=== PATIENT | female | born 1940 | race Caucasian/White ===

== ENCOUNTER 2017-05-05 21:05 | Observation (INO) | payer OTHER ==
--- NOTE | 2017-05-05 21:42 | PDOC ---
Attending Attestation - Resident Resident Name: JaswantIris cisneros - HPI HPI: 05/06/17 01:18 Pt presents to the ED complaining of chest "discomfort", accompanied with nausea and diaphoresis. Histor of DM and HTN. Never had cardiac work up, as per family.
[2017-05-05] MEDS ORDERED: ASPIRIN 325 MG TABLET PO ONE (21:48)
[2017-05-05 22:04] VITALS: BMI 25.6
[2017-05-05] MEDS ORDERED: ASPIRIN 81 MG CHEWABLE TABLETS ONE (22:13)
[2017-05-05] MEDS ORDERED: SODIUM CHLORIDE 0.9% 1000 ML INFUS.BAG IV ONE (22:16)
[2017-05-05 22:41] LABS: MCH 28.9 pg (25.7-33.7); MCHC 32.9 g/dl (32.0-36.0); MEAN CELL VOLUME 87.8 fl (80-96); MEAN PLT VOLUME 8.4 fl (7.5-11.1); PLATELET COUNT 192 K/MM3 (134-434); RDW 13.4 % (11.6-15.6); WHITE BLOOD COUNT 6.1 K/mm3 (4.0-10.0)
--- NOTE | 2017-05-05 22:53 | PDOC ---
History of Present Illness - General Stated Complaint: DIZZINESS Time Seen by Provider: 05/05/17 21:22 History Source: Patient, Family - History of Present Illness Initial Comments: 05/05/17 22:48 CC: :Dizziness Patient is a 77 y.o. female who presents to our ED this evening via EMS with her daughter and son-in-law following an episode of "dizziness" with associated chest pain, diaphoresis and nausea. Patient states she was standing in her kitchen preparing dinner when she suddenly felt "dizzy" though she's unable to qualify as to whether she was spinning or the room was spinning. Patient also notes she had a momentary pressure-like sternal chest pain which resolved within minutes, however she was diaphoretic and vomited (yellowish, no visible blood) on one occasion. ROS was positive for headache and epigastric abdominal pain. Past History - Past Medical History Allergies/Adverse Reactions: Allergies Allergy/AdvReac Type Severity Reaction Status Date / Time No Known Allergies Allergy Verified 05/05/17 22:02 - Psycho/Social/Smoking Cessation Hx Suicidal Ideation: No Smoking History: Unknown if ever smoked Have you smoked in the past 12 months: No Information on smoking cessation initiated: No Hx Alcohol Use: No Drug/Substance Use Hx: No Review of Systems - Review of Systems Constitutional: Yes: Diaphoresis. No: Chills, Fever, Malaise HEENTM: No: Blurred Vision, Tinnitus, Hearing Loss, Throat Pain Respiratory: Yes: Cough. No: Orthopnea, Wheezing, Hemoptysis Cardiac (ROS): Yes: Chest Pain, Lightheadedness. No: Edema, Palpitations, Syncope ABD/GI: Yes: Symptoms Reported. No: Constipated, Diarrhea : No: Burning, Dysuria Neurological: Yes: Headache. No: Numbness, Seizure, Tingling, Tremors Psychiatric: No: Anxiety, Depression All Other Systems: Reviewed and Negative *Physical Exam - Vital Signs Last Vital Signs Temp Pulse Resp BP Pulse Ox 97.6 F 73 17 138/90 99 05/05/17 21:55 05/05/17 21:55 05/05/17 21:55 05/05/17 21:55 05/05/17 21:55 - Physical Exam General Appearance: Yes: Nourished, Appropriately Dressed HEENT: positive: EOMI, HUNTER Neck: positive: Trachea midline, Supple Respiratory/Chest: positive: Lungs Clear, Normal Breath Sounds Cardiovascular: positive: Regular Rhythm, Regular Rate, S1, S2 Gastrointestinal/Abdominal: positive: Normal Bowel Sounds, Soft Extremity: positive: Normal Capillary Refill, Normal Inspection Integumentary: positive: Normal Color, Dry, Warm Neurologic: positive: manager assisted living II-XII NML intact, Fully Oriented, Alert Deep Tendon Reflexes: Ankle (L): 3+, Ankle (R): 3+ ED Treatment Course - LABORATORY CBC & Chemistry Diagram: 05/05/17 22:00 05/05/17 22:00 - RADIOLOGY Radiology Studies Ordered: Category Date Time Status CHEST PA & LAT [RAD] Stat Radiology 05/05/17 21:40 Ordered - Medications Given in the ED: ED Medications Discontinued Medications Generic Name Dose Route Start Last Admin Trade Name Freq PRN Reason Stop Dose Admin Aspirin 325 mg 05/05/17 21:48 05/05/17 22:28 Asa - PO 05/05/17 21:49 325 mg ONCE ONE Administration Sodium Chloride 1,000 ml 05/05/17 22:16 05/05/17 22:28 Normal Saline - IV 05/05/17 22:17 1,000 ml ONCE ONE Administration Medical Decision Making - Medical Decision Making 05/06/17 01:23 Patient is a 77 y.o. female who presents for dizziness and an associated isolated episode of chest pain. Immediate differential diagnosis included ACS vs. GERD vs. dehydration. On PE, patient's VS were within normal limits. Patient exhibited normal cappilary refill and there was no apparent skin tenting , however as patient had c/o of diaphoresis and decreased PO intake, patient was given 1 L IVNS as well as prophylactic aspirin. As patient's Heart Score was 4 (2 points age + 1 point RF of HTN, DM + 1 moderately suspicious history) patient was admitted for further cardiac work-up. *DC/Admit/Observation/Transfer Diagnosis at time of Disposition: Chest pain - Discharge Dispostion Condition at time of disposition: Good Admit: Yes - Attestations Physician Attestion: 05/06/17 00:49 I, Dr. Iris Michaud, attest that this document has been prepared under my direction and personally reviewed by me in its entirety. I further attest, that it accurately reflects all work, treatment, procedures and medical decision -making performed by me.
[2017-05-05 23:09] LABS: ANION GAP 8 (8-16); CALCIUM 9.3 mg/dL (8.5-10.1); CO2 28 mmol/L (21-32); CREATININE 0.9 mg/dL (0.55-1.02); GLUCOSE,RANDOM 144 mg/dL (74-106)
[2017-05-05 23:26] LABS: TROPONIN I < 0.02 ng/ml (0.00-0.05)
--- NOTE | 2017-05-06 00:39 | PN ---
Teaching Attending Note Name of Resident: Maxwell Pak ATTENDING PHYSICIAN STATEMENT I saw and evaluated the patient. I reviewed the resident's note and discussed the case with the resident. I agree with the resident's findings and plan as documented. SUBJECTIVE:77 y/o F presented to ED with Dizziness, and CP which started at rest , with N+ and V+. PMH: HTn, HD, DM2 and hearing loss. OBJECTIVE: Examination WNL, and No JVD, M/G/R, no rales or peripheral edema noted. CBCD WBC 6.1 K/mm3 (4.0-10.0) 05/05/17 22:00 RBC 4.24 M/mm3 (3.60-5.2) 05/05/17 22:00 Hgb 12.2 GM/dL (10.7-15.3) 05/05/17 22:00 Hct 37.2 % (32.4-45.2) 05/05/17 22:00 MCV 87.8 fl (80-96) 05/05/17 22:00 MCHC 32.9 g/dl (32.0-36.0) 05/05/17 22:00 RDW 13.4 % (11.6-15.6) 05/05/17 22:00 Plt Count 192 K/MM3 (134-434) 05/05/17 22:00 MPV 8.4 fl (7.5-11.1) 05/05/17 22:00 CMP Sodium 138 mmol/L (136-145) 05/05/17 22:00 Potassium 4.0 mmol/L (3.5-5.1) 05/05/17 22:00 Chloride 102 mmol/L (98-107) 05/05/17 22:00 Carbon Dioxide 28 mmol/L (21-32) 05/05/17 22:00 Anion Gap 8 (8-16) 05/05/17 22:00 BUN 18 mg/dL (7-18) 05/05/17 22:00 Creatinine 0.9 mg/dL (0.55-1.02) 05/05/17 22:00 Random Glucose 144 mg/dL (74-106) H 05/05/17 22:00 Calcium 9.3 mg/dL (8.5-10.1) 05/05/17 22:00 CARDIAC ENZYMES Creatine Kinase 62 IU/L (26-192) 05/05/17 22:00 Troponin I < 0.02 ng/ml (0.00-0.05) 05/06/17 04:00 ASSESSMENT AND PLAN: Admitted for telemetry observation to r/o ACS trend troponins, aspirin, oxygen, pain medications prn, ECHO in AM. Case d/w residents and plans agreed on.
--- NOTE | 2017-05-06 01:03 | HP ---
CHIEF COMPLAINT: Dizziness, sweating, chest discomfort PCP: Austin Swenson MD HISTORY OF PRESENT ILLNESS: Patient is a 77 Year old Mediterranean female with PMHx of HTN,HLD, NIDDMII, B/ L hearing loss who presented to the ED due to dizziness, sweating and chest pressure associated with nausea and vomiting. The Symptoms started around 7 pm while she was standing in the kitchen, she felt the room spinning around her, she did not loss her consciousness, associated with diaphoresis, nausea and vomit some food (non bloody). She felt brief pressure pain in med sternal area, non radiating. She experienced similar symptoms few times in the past. Patient reports SOB when she climb few stairs, she uses one pillow at night, last time she saw her education program specialist back home 2 years ago. she had a dry cough and her daughter had a flue last week, Patient denies fever, chills, headache, blurry vision, tinnitus,palpitation, abdominal pain, D/C ,loss of appetite, melena, hemoptysis, or dysuria. ER course was notable for: (1)EKG NSR @ 80 (2)TROP neg <0.02 (3)1000 Bolus NS [facility] PAST MEDICAL HISTORY: HTN was diagnosed 3 years ago, on Losartan-HCTZ 100-12.5 MG TAB once a day HLD on atorvastatin 20 mg daily NIDDMII on metformin 1000 mg BID (some times she use it once a day) H.Pylori , resolved,on Protonix now PAST SURGICAL HISTORY:None Social History: Have 6 kids, lives with her daughter Smoking:None , but drinks 3 esspresso coffee/day Alcohol:Socially Drugs: None Family History: Significant for Heart attach, stroke and hearing loss. Allergies: NKDA No Known Allergies Allergy (Verified 05/05/17 22:02) HOME MEDICATIONS: REVIEW OF SYSTEMS CONSTITUTIONAL: Absent: fever, chills, diaphoresis, generalized weakness, malaise, loss of appetite, weight change HEENT: Absent: rhinorrhea, nasal congestion, throat pain, throat swelling, difficulty swallowing, mouth swelling, ear pain, eye pain, visual changes CARDIOVASCULAR: Absent: chest pain, pre syncope, palpitations, irregular heart rate, lightheadedness, peripheral edema RESPIRATORY: Absent: cough, shortness of breath, dyspnea with exertion, orthopnea, wheezing, stridor, hemoptysis GASTROINTESTINAL: Absent: abdominal pain, abdominal distension, nausea, vomiting, diarrhea, constipation, melena, hematochezia GENITOURINARY: Absent: dysuria, frequency, urgency, hesitancy, hematuria, flank pain, genital pain MUSCULOSKELETAL: Absent: myalgia, arthralgia, joint swelling, back pain, neck pain SKIN: Absent: rash, itching, pallor HEMATOLOGIC/IMMUNOLOGIC: Absent: easy bleeding, easy bruising, lymphadenopathy, frequent infections ENDOCRINE: Absent: unexplained weight gain, unexplained weight loss, heat intolerance, cold intolerance NEUROLOGIC: Absent: headache, focal weakness or paresthesias, dizziness, unsteady gait, seizure, mental status changes, bladder or bowel incontinence PSYCHIATRIC: Absent: anxiety, depression, suicidal or homicidal ideation, hallucinations. PHYSICAL EXAMINATION Vital Signs - 24 hr 05/05/17 21:55 Temperature 97.6 F Pulse Rate 73 Respiratory 17 Rate Blood Pressure 138/90 O2 Sat by Pulse 99 Oximetry (%) GENERAL: Awake, alert, and fully oriented, in no acute distress. HEAD: Normal with no signs of trauma. EYES: Pupils equal, round and reactive to light, extraocular movements intact, sclera anicteric, conjunctiva clear. No lid lag. NECK: Normal range of motion, supple without lymphadenopathy, JVD, or masses. LUNGS: Breath sounds equal, clear to auscultation bilaterally. No wheezes, and no crackles. No accessory muscle use. HEART: Regular rate and rhythm, normal S1 and S2 without murmur, rub or gallop. ABDOMEN: Soft, nontender, not distended, normoactive bowel sounds, no guarding, no rebound, no masses. No hepatomegaly or splenomegaly. MUSCULOSKELETAL: Normal range of motion at all joints. No bony deformities or tenderness. No CVA tenderness. UPPER EXTREMITIES: 2+ pulses, warm, well-perfused. No cyanosis. No clubbing. No peripheral edema. LOWER EXTREMITIES: 2+ pulses, warm, well-perfused. No calf tenderness. No peripheral edema. NEUROLOGICAL: Cranial nerves II-XII intact. Normal speech. Normal gait. PSYCHIATRIC: Cooperative. Good eye contact. Appropriate mood and affect. SKIN: Warm, dry, normal turgor, no rashes or lesions noted, normal capillary refill. Laboratory Results - last 24 hr 05/05/17 05/05/17 05/05/17 22:00 22:00 22:00 WBC 6.1 RBC 4.24 Hgb 12.2 Hct 37.2 MCV 87.8 MCH 28.9 MCHC 32.9 RDW 13.4 Plt Count 192 MPV 8.4 Sodium 138 Potassium 4.0 Chloride 102 Carbon Dioxide 28 Anion Gap 8 BUN 18 Creatinine 0.9 Random Glucose 144 H Calcium 9.3 Creatine Kinase 62 Troponin I < 0.02 Lipase 05/05/17 22:00 WBC RBC Hgb Hct MCV MCH MCHC RDW Plt Count MPV Sodium Potassium Chloride Carbon Dioxide Anion Gap BUN Creatinine Random Glucose Calcium Creatine Kinase Troponin I Lipase 125 CBC, BMP 05/05/17 22:00 05/05/17 22:00 ASSESSMENT/PLAN: Patient is a 77 Year old Mediterranean female with PMHx of HTN,HLD, NIDDMII , B/ L hearing loss who presented to the ED due to dizziness, sweating and chest pressure associated with nausea and vomiting. The patient was admitted to observe-tele to R/O ACS. # Chest pain possible ACS vs GERD, vs dehydration * Heart score 4 * Aspirin 325 mg , followed by ASA 81 mg daily * CXR: no acute pathology * EKG: NSR @ 80 * TROPI neg <0.02, trend trop * CBC, CMP WNL * clinical research monitor * Vitals Q 4 hr * ECHO * Move with facilities assistant * protonix 40 mg daily * IVF NS @75 CC/HR * * # Pre-syncope, likely 2/2 dehydration vs meds Side effect * Orthostaics was negative Supine 138/76, Sitting 138/82, standing 138/84. * IV fluids 0.9 NS @ 75 cc/hr * Fall precautions * * # HTN, Chronic, * Controlled on Losartan-HCTZ 100-12.5 Tab once daily * continue home med * BP 138/90 on admission * monitor BP * Low sodium diet # NIDDMII, Chronic * Random Glucose 144 on admission, * On Metformin 1000 MG BID (she skip a dose sometimes if the sugar is not high) will hold metformin now. * HgA1c around 7 plus per the daughter * Repeat HgA1c * Accucheck * BGM * Insulin sliding scale * * # HLD, Chronic * On atorvastatin 20 mg tab daily * Lipid panel * change life style * patient education * * # Hearing loss, chronic * Follow as out patient # F/E/N * IVF NS @ 75cc HR * Electrolytes WNL * N: Low sodium diet, diabetic diet # Proph * DVT proph: high risk, Heparine 5000 SQ TID * GI Proh: Protonix 40 mg daily # Dispo * Admit to observe tele * Full code D/W Dr. Escobar and the medical team Maxwell Pak. PGY1
[2017-05-06] MEDS ORDERED: SODIUM CHLORIDE 1,000 ML IV SCH ×2 (03:45→04:21)
[2017-05-06 05:19] LABS: CHOLESTEROL 125 mg/dL (50-200)
[2017-05-06] MEDS: HEPARIN NA (PORCINE) 5,000 UNITS/ML 1ML VIAL SQ SCH ×2 (07:00→14:42)
[2017-05-06] MEDS ORDERED: INSULIN SLIDING SCALE (NOVOLOG) 1 VIAL SQ SCH (07:00)
--- NOTE | 2017-05-06 09:18 | EKG ---
Test Reason : Blood Pressure : / mmHG Vent. Rate : 081 BPM Atrial Rate : 081 BPM P-R Int : 136 ms QRS Dur : 090 ms QT Int : 392 ms P-R-T Axes : 058 030 048 degrees QTc Int : 455 ms NORMAL SINUS RHYTHM NORMAL ECG NO PREVIOUS ECGS AVAILABLE Confirmed by PHILIP VORA MD ([id number]) on 05/06/2017 9:18:15 AM Referred By: Confirmed By:PHILIP VORA MD
[2017-05-06] MEDS ORDERED: ASPIRIN 81 MG CHEWABLE TABLETS PO SCH (10:00)
[2017-05-06] MEDS ORDERED: PATIENT'S OWN MEDICATION (NON-FORMULARY) (Losartan/Hydrochlorothiazide [Losartan-Hctz 100- PO SCH (10:00)
[2017-05-06] MEDS ORDERED: HYDROCHLOROTHIAZIDE 12.5 MG CAPSULE (FP) PO SCH (10:00)
[2017-05-06] MEDS ORDERED: PANTOPRAZOLE 40 MG TABLET (FP) PO SCH (10:00)
[2017-05-06] MEDS ORDERED: LOSARTAN POTASSIUM 50 MG TABLET (FP) PO SCH ×2 (10:00→17:26)
[2017-05-06 12:31] LABS: LDL CHOLESTEROL (ONLY SJRH) 66 mg/dL (5-100)
[2017-05-06] MEDS: INSULIN SLIDING SCALE (NOVOLOG) 1 VIAL SQ SCH ×2 (13:24→17:40)
--- NOTE | 2017-05-06 14:08 | TRE ---
Protocol Name : KAREN Max Work Load (METS*10) : 61 Time In Exercise Phase : 00:04:18 Max. Systolic BP : 174 mmHg Max Diastolic BP : 95 mmHg Max Heart Rate : 120 BPM Max Predicted Heart Rate : 142 BPM Attending Physician : DR. VORA Reason For Termination : Target Heart Rate Achieved Reason for Test : CHEST PAIN Stress Protocol : KAREN Rest HR : 82 BPM PeakEx METs : 6.1 METS Recovery ECG Response (OLD) : Diagnosis : The patient completed 4:18 seconds of a standard Karen Protocol achieving a workload of 6 METS. The resting ECG showed Sinus Bradycardia at 65bpm and at peak stress the heart rate bo to 120bpm representing 85% of age predicted maximum. She was fatigued but denied chest pain. The baseline blood pressure of 155/96 bo to 174/95 at peak stress. Exercise was stopped due to achievement of target heart rate. ECG Response: 1mm horizontal ST segment depressions in II, III and avF seen early in recovery phase and returned to baseline by 4 minutes of recovery; no arrhythmias. Conclusion: 1. +/ Abnormal stress ECG, with symptoms of exertional fatigue. No chest pain reported. 2. Fair workload for age. 3. No exercise induced arrhythmia. 4. Baseline mild hypertension with appropriate blood pressure response to exercise. Confirmed by PHILIP VORA MD ([id number]) on 05/06/2017 2:07:34 PM
--- NOTE | 2017-05-06 14:26 | PN ---
Teaching Attending Note Name of Resident: Karlie Bolanos ATTENDING PHYSICIAN STATEMENT I saw and evaluated the patient. I reviewed the resident's note and discussed the case with the resident. I agree with the resident's findings and plan as documented. SUBJECTIVE: seen at 12 pm Spoke to her in Armenian. SHe had an episode of chest pressure yesterday evening , described as light headedness and spinning. SHe was standing when it happended and lying down did not resolve her sx. this was accompanied with chest tightness. sx lasted > 30 min. this happened to her 2 months ago, with CP and dizziness while asleep. She describes exertional CP and SOB which resolves with rest denies any weakness, palpitations or any SOB now OBJECTIVE: NAD, AAOx3 . HEENT: MMM, no facial droop, EOMI, round equal pupils reactive to light , oropharynx with no congestion, no LAP in neck CV: RRR. no MRG Lungs : CTAB Ext : no edema or erythema. Neuro: no facial droop, EOMI, round equal pupils reactive to light. nl facial sensation . uvula and tongue at mid line strength 5/5 in upper and lower extremities. sensation NL. reflexes 2+ biceps , and 1+ knee jerk b/l [place] Neg ASSESSMENT AND PLAN: 77 y/o lady with h/o DM , HTN, and HLP , who presented with an episode of dizziness and chest tightness 1- Dizziness and chest tightness : from description of her presentation, I suspect her sx were due to ACS ( Unstable angina ) . She also describes symptoms of stable angina in past. and an episode of unstable angina 2 months ago. She has HTN, DM , ND HLP as risk factors for CAD - check stress test . - EKG and trop with no signs of acute ischemic changes - IVF were given, and orthostatics were neg for orthostatic drop . Dc IVF later today - cont her home ASA 2- HTN: - cont losartan , hold HCTZ while hydrating 3- DM : hold metformin and cont SSI 4- h/o GERD. cont PPI Dispo : depends on result sof stress test
--- NOTE | 2017-05-06 16:33 | CON.CARD ---
Consult Consult Specialty:: Cardiology Referred by:: Hospitalist Medicine Reason for Consultation:: Abnormal ETT - History of Present Illness Chief Complaint: Chest pain and dizziness History of Present Illness: PCP: Austin Swenson MD HISTORY OF PRESENT ILLNESS: Patient is a 77 Year old Mediterranean female with PMHx of HTN,HLD, Type 2 DM, B /L hearing loss who presented to the ED due to dizziness, sweating, flush feeling and chest pressure associated with nausea and vomiting. She felt brief pressure pain in med sternal area, non radiating. She experienced similar symptoms few times in the past. Patient reports extertional chest pain and SOB when she climb few stairs resolving with rest, she uses one pillow at night, last time she saw her garageman back home 2 years ago. Recent Travel: [place] PAST MEDICAL HISTORY: HTN was diagnosed 3 years ago, on Losartan-HCTZ 100-12.5 MG TAB once a day HLD on atorvastatin 20 mg daily NIDDMII on metformin 1000 mg BID (some times she use it once a day) H.Pylori , resolved,on Protonix now PAST SURGICAL HISTORY:None Social History: Have 6 kids, lives with her daughter Smoking:None , but drinks 3 esspresso coffee/day Alcohol:Socially Drugs: None Family History: Significant for Heart attach, stroke and hearing loss. Allergies: NKDA No Known Allergies Allergy (Verified 05/05/17 22:02) - History Source History Provided By: Medical Record Limitations to Obtaining History: Language Barrier - Past Medical History Cardio/Vascular: Yes: HTN, Hyperlipdemia Endocrine: Yes: Diabetes Mellitus - Alcohol/Substance Use Hx Alcohol Use: No - Smoking History Smoking history: Unknown if ever smoked Have you smoked in the past 12 months: No Home Medications - Allergies Allergies/Adverse Reactions: Allergies Allergy/AdvReac Type Severity Reaction Status Date / Time No Known Allergies Allergy Verified 05/05/17 22:02 - Home Medications Home Medications: Ambulatory Orders Aspirin [ASA -] 81 mg PO DAILY 05/06/17 Atorvastatin Ca [Lipitor] 20 mg PO HS 05/06/17 Cholecalciferol (Vitamin D3) [Vitamin D3] 50,000 unit PO WEEKLY 05/06/17 Losartan/Hydrochlorothiazide [Losartan-Hctz 100-12.5 mg Tab] 1 each PO DAILY Metformin HCl [Glucophage] 1,000 mg PO BID 05/06/17 Omeprazole 20 mg PO DAILY 05/06/17 Review of Systems - Review of Systems Cardiovascular: reports: Chest Pain Neurological: reports: Dizziness Vital Signs: Vital Signs Temperature 98 F 05/06/17 14:35 Pulse Rate 70 05/06/17 14:35 Respiratory Rate 18 05/06/17 14:35 Blood Pressure 119/68 05/06/17 14:35 O2 Sat by Pulse Oximetry (%) 96 05/06/17 09:10 Constitutional: Yes: No Distress, Calm Neck: Yes: Supple Respiratory: Yes: Regular, CTA Bilaterally Gastrointestinal: Yes: Normal Bowel Sounds, Soft Cardiovascular: Yes: Regular Rate and Rhythm JVD: No Carotid Bruit: No Heart Sounds: Yes: S1, S2 Edema: No - Other Data Labs, Other Data: Troponin, BNP 05/06/17 04:00 Troponin I < 0.02 Troponin, BNP 05/06/17 04:00 Troponin I < 0.02 Imaging - Results Chest X-ray: Report Reviewed (NAD) EKG: Report Reviewed (NSR @ 81) Problem List - Problems (1) Chest pain Code(s): R07.9 - CHEST PAIN, UNSPECIFIED Qualifiers: Chest pain type: precordial pain Qualified Code(s): R07.2 - Precordial pain (3) Hyperlipidemia associated with type 2 diabetes mellitus Code(s): E11.69 - TYPE 2 DIABETES MELLITUS WITH OTHER SPECIFIED COMPLICATION E78.5 - HYPERLIPIDEMIA, UNSPECIFIED (4) Type 2 diabetes mellitus Code(s): E11.9 - TYPE 2 DIABETES MELLITUS WITHOUT COMPLICATIONS Qualifiers: Diabetes mellitus complication status: without complication Diabetes mellitus halfway insulin use: without ferry terminal supervisor use Qualified Code(s): E11.9 - Type 2 diabetes mellitus without complications (5) Hypertensive cardiovascular disease Code(s): I11.9 - HYPERTENSIVE HEART DISEASE WITHOUT HEART FAILURE Qualifiers: Heart failure presence: with heart failure Qualified Code(s): I11.0 - Hypertensive heart disease with heart failure Assessment/Plan 05/06/2017 Echo: Normal biventricular size and fxn, mild MR and TR 05/06/2017 ETT: 4:18 [place] 6 METS, 85% MPHR, [address] depressions inferior leads 1. Chest pain with abnormal stress EKG 2. Dizziness with typical prodromal sxs suggestive of vasovagal etiology 4. HTN 5. Hyperlipidemia 6. Type 2 DM P:1. Reduce losartan 50 qd, agree with d/c HCTZ, start carvedilol 6.25 bid, Lipitor 20 qd and ASA 81 qd 2. If patient remains asymptomatic after starting antianginal, may d/c with f/u in office, to obtain nuclear stress test to better delineate extent of ischemia if sxs persist 3. Case d/w daughter 4. Thank you for consultative opportunity
[2017-05-06 19:10] VITALS: BP 125/70; PULSE 66; TEMP 98
[2017-05-06] MEDS ORDERED: CARVEDILOL 3.125 MG TABLET (FP) PO SCH (22:00)
[2017-05-06] MEDS ORDERED: ATORVASTATIN CA 20 MG TABLET (FP) PO SCH (22:00)
--- NOTE | 2017-05-06 22:22 | DS ---
Physical Exam: SUBJECTIVE: Patient stated that when she presented to the hospital she had chest pressure at rest for 30 minutes with associated light headedness and spinning. She also attests to anginal symptoms of exertional CP and SOB which resolves with rest. Currently the patient has no CP, no SOB, no fevers, no chills, no palpitations. She has a dry cough. Dizziness has improved with fluids. OBJECTIVE: Vital Signs Period Temp Pulse Resp BP Sys/Burris Pulse Ox Last 24 Hr 98 F-98.3 F 66-82 15-18 115-149/66-85 96-96 PHYSICAL EXAM GENERAL: The patient is awake, alert, and fully oriented, in no acute distress. HEENT: PERRLA, EOMi, No throat exudate, no LAD LUNGS: Breath sounds equal, clear to auscultation bilaterally, no wheezes, no crackles, no accessory muscle use. HEART: Regular rate and rhythm, S1, S2 without murmur, rub or gallop. ABDOMEN: Soft, nontender, nondistended, normoactive bowel sounds, no guarding, no rebound. EXTREMITIES: 2+ pulses, warm, well-perfused, no edema. NEUROLOGICAL: Cranial nerves II through XII grossly intact. No facial droop, sensation is equal and intact in body and face, muscles 5/5, reflexes 2+, normal speech, normal gait (observed, walked without CP) LABS Laboratory Results - last 24 hr 05/06/17 05/06/17 05/06/17 04:00 04:00 04:00 POC Glucometer Hemoglobin A1c % 7.4 H Troponin I < 0.02 Triglycerides 68 Cholesterol 125 Total LDL Cholesterol 66 HDL Cholesterol 48 05/06/17 05/06/17 05/06/17 06:53 12:16 17:35 POC Glucometer 102 113 136 Hemoglobin A1c % Troponin I Triglycerides Cholesterol Total LDL Cholesterol HDL Cholesterol HOSPITAL COURSE: Date of Admission:05/06/17 Date of Discharge: 05/06/17 Mrs Kirkpatrick is a 77 y/o lady with history of DM ,HTN, and HLD , who presented with an episode of chest pressure at rest with dizziness. # Chest Pain - The patient's troponins were negative with EKG showing no acute pathology. A stress EKG showed ST depressions after exercise. With the clinical symptoms and the positive stress test, the patient's chest pain was likely due to ACS. The patient received a loading dose of ASA 325mg along with ASA 81mg. The patient needs a nuclear stress test as an outpatient to detect possible reversible defects. Cardiology saw the patient and stated that if the patient was able to walk today without chest pain, she would be able to go home and call on Tuesday for an appointment. The patient was able to walk without CP and given those instructions to follow at discharge. # Dizziness - The patient's dizziness got better when she was laying flat. Orthostatics were negative. Pt was started on IVNS at 75cc/hr and improved. She had no dizzy spells in the hospital. # Other - Hx of HTN: The patient will be discharged on Losartan 50mg PO TID, BP was stable during the hospitalization - Hx of NIDDMI: The patient was on a SSI in the hospital and will be discharged on Metformin 1,000mg BID - Hx of HLD: The patient was continued on her home of Atorvastatin 20mg PO QD with normal lipid panel The hospital course was discussed with the patient who agrees with the plan Minutes to complete discharge: 55 Discharge Summary Reason For Visit: CHEST PAIN Condition: Improved - Instructions Diet, Activity, Other Instructions: - We think your chest pain is caused by a problem in your heart - Please call Dr. Stewart's office ([phone]) on Tuesday to schedule an outpatient Nuclear Perfusion Cardiac Stress Test. it is important todiagnose the blockage to avoid a heart attack in future - We discontinued your HCTZ diuretic, and switched you to Losartan 50mg 1 tablet daily - you are on a new medication called coreg - Please followup with your primary care provider in one week - If you have any chest pain at rest, or any other serious symptoms, please come back to the ER Referrals: Austin Moulton MD [Primary Care Provider] - 1 Week Cl Stewart MD [Staff Physician] - Disposition: HOME - Home Medications Comprehensive Discharge Medication List: Ambulatory Orders Aspirin [ASA -] 81 mg PO DAILY 05/06/17 Atorvastatin Ca [Lipitor] 20 mg PO HS #30 tab 05/06/17 Carvedilol [Coreg -] 3.125 mg PO BID #30 tablet 05/06/17 Cholecalciferol (Vitamin D3) [Vitamin D3] 50,000 unit PO WEEKLY 05/06/17 Losartan Potassium [Cozaar -] 50 mg PO DAILY #30 tablet 05/06/17 Metformin HCl [Glucophage] 1,000 mg PO BID 05/06/17 Omeprazole 20 mg PO DAILY 05/06/17
== END 2017-05-06 20:11 | disposition home or self-care (01) ==
LOC: JER 21:05 → UNDOADMOB 05-06 00:49 → INTOOBSV 05-06 00:49 → JERBED 05-06 00:49 → UNDOADMIN 05-06 01:02 → JERBED 05-06 01:09 → J4W 05-06 02:18 → JERBED 05-06 02:18 → J4W 05-06 02:18
PROVIDERS: ADMIT Internal Medicine; ATTEND Internal Medicine
PROC: 3E0337Z Introduction of Electrolytic and Water Balance Substance into Peripheral Vein, Percutaneous Approach (ICD-10-PCS; principal; 2017-05-06)
PROC: 3E013GC Introduction of Other Therapeutic Substance into Subcutaneous Tissue, Percutaneous Approach (ICD-10-PCS; 2017-05-06)
DX: R07.9 Chest pain, unspecified (principal); R55 Syncope and collapse; I11.9 Hypertensive heart disease without heart failure; E78.5 Hyperlipidemia, unspecified; H91.93 Unspecified hearing loss, bilateral; R07.2 Precordial pain; E11.69 Type 2 diabetes mellitus with other specified complication; Z79.84 Long term (current) use of oral hypoglycemic drugs
CPT/HCPCS: 36415; 71020-TC; 80048; 80061; 82550; 83036; 83690; 83721; 84484; 85027; 93005; 93010; 93017; 93018; 93306-TC; 99285-25; G0378; J1644

== ENCOUNTER 2018-09-09 16:26 | Emergency (ER) | payer OTHER ==
--- NOTE | 2018-09-09 16:29 | PDOC ---
History of Present Illness - General Stated Complaint: NAUSEA/VOMETTING Time Seen by Provider: 09/09/18 16:29 History Source: Patient, Family - History of Present Illness Initial Comments: 09/09/18 16:49 78-year-old female with past medical history of hypertension, hyperlipidemia, [id number]-zlcxjcenc diabetes, bilateral hearing loss, gastroesophageal reflux disease presented to emergency department for vomiting since 2 PM today. Patient reporting her vomit was yellow, denied blood, occurring 8 times today. Patient stated that she had diarrhea yesterday, loose and watery, denied blood. She stated her daughter gave her two pills for diarrhea, and the diarrhea resolved yesterday. She admitted to epigastric pain. She denied fever, chills, dysuria, hematuria, chest pain, shortness of breath. Allergies: NKDA Surgical history: denied Past History - Past Medical History Allergies/Adverse Reactions: Allergies Allergy/AdvReac Type Severity Reaction Status Date / Time No Known Allergies Allergy Verified 09/09/18 19:54 Home Medications: Ambulatory Orders Aspirin [ASA -] 81 mg PO DAILY 05/06/17 Atorvastatin Ca [Lipitor] 20 mg PO HS #30 tab 05/06/17 Cholecalciferol (Vitamin D3) [Vitamin D3] 50,000 unit PO WEEKLY 05/06/17 Metformin HCl [Glucophage] 1,000 mg PO BID 05/06/17 Omeprazole 20 mg PO DAILY 05/06/17 Losartan Potassium [Cozaar -] 12.5 mg PO DAILY 09/09/18 Meclizine HCl 25 mg PO QID PRN #12 tablet 09/09/18 Ondansetron [Zofran Odt -] 4 mg SL TID PRN #6 od.tablet 09/09/18 - Suicide/Smoking/Psychosocial Hx Smoking History: Unknown if ever smoked Have you smoked in the past 12 months: No Hx Alcohol Use: No Drug/Substance Use Hx: No Review of Systems - Review of Systems Able to Perform ROS?: Yes Comments:: 09/09/18 16:51 General: admitted to generalized weakness. denied fever, chills, night sweats. HEENT: denied sore throat, rhinorrhea, ear pain. Heart: denied chest pain, palpitations, syncope, lower extremity swelling, diaphoresis. Respiratory: denied shortness of breath, cough, sputum production, hemoptysis. Abdomen: admitted to abdominal pain, nausea, vomiting, diarrhea. denied constipation, blood in stool. : denied dysuria, increased urinary frequency, hematuria, urinary incontinence , flank pain. Back: denied back pain. Musculoskeletal: denied joint pain, muscle pain, joint swelling. Neurological: denied headache, dizziness, numbness, tingling, weakness. Skin: denied rash, laceration, abrasion. *Physical Exam - Physical Exam Comments: 09/09/18 16:52 Constitutional: Well-nourished, Well-developed, appearing stated age. HEENT: head is normocephalic, atraumatic. EOMI. PERRLA. Neck: supple. Full ROM. Heart: regular rhythm. no murmurs, rubs or gallops. Lungs: clear to auscultation bilaterally. no crackles, rhonchi or wheezing. no stridor. Abdomen: soft, flat. tenderness to RLQ, LLQ and epigastrium. increased bowel sounds. no rebound, guarding, masses. Extremities: Peripheral pulses intact. No lower extremity edema. Neurological: CN 2-12 grossly intact. 5/5 strength all extremities. no facial drooping. no ataxia. gait normal. ambulated well unassisted. Psych: awake, alert, oriented x3. Follows commands. Answers questions appropriately. ED Treatment Course - LABORATORY CBC & Chemistry Diagram: 09/09/18 17:07 09/09/18 17:53 Medical Decision Making - Medical Decision Making 09/09/18 16:52 78 year old female with above PMH presented to ED for nausea, vomiting, diarrhea , epigastric pain. Pt had RLQ/LLQ/epigastric tenderness. Initial Vital Signs Temp Pulse Resp BP Pulse Ox 97.4 F L 70 20 160/86 100 09/09/18 16:32 09/09/18 16:32 09/09/18 16:32 09/09/18 16:32 09/09/18 16:32 Afebrile. No tachycardia. No tachypnea. Mild hypertension. No hypoxia on room air. Pepcid/Maalox/Zofran ordered for nausea/vomiting/epigastric pain. 1000 cc bolus normal saline ordered for hydration. Pending CMP, acetone for evaluation of possible DKA/HHS. Pending influenza testing. Pending CBC, CT abdomen/pelvis for evaluation of possible diverticulitis, appendicitis. Pending lipase for evaluation of possible pancreatitis. Pending CMP, Mg for evaluation of possible electrolyte imbalance. Pending EKG, cardiac enzymes for evaluation of possible ACS/demand ischemia. 09/09/18 17:09 EKG performed at 1649: rate 66, regular rhythm, normal intervals, normal axis, no acute ST changes. Similar to EKG performed 05/05/17. 09/09/18 17:32 CBC WBC 5.5 K/mm3 (4.0-10.0) 09/09/18 17:07 RBC 4.00 M/mm3 (3.60-5.2) 09/09/18 17:07 Hgb 12.5 GM/dL (10.7-15.3) 09/09/18 17:07 Hct 35.4 % (32.4-45.2) 09/09/18 17:07 MCV 88.5 fl (80-96) 09/09/18 17:07 MCH 31.1 pg (25.7-33.7) 09/09/18 17:07 MCHC 35.1 g/dl (32.0-36.0) 09/09/18 17:07 RDW 13.5 % (11.6-15.6) 09/09/18 17:07 Plt Count 206 K/MM3 (134-434) 09/09/18 17:07 MPV 8.4 fl (7.5-11.1) 09/09/18 17:07 Absolute Neuts (auto) 4.2 K/mm3 (1.5-8.0) 09/09/18 17:07 Neutrophils % 77.2 % (42.8-82.8) 09/09/18 17:07 Lymphocytes % 14.7 % (8-40) 09/09/18 17:07 Monocytes % 5.7 % (3.8-10.2) 09/09/18 17:07 Eosinophils % 2.1 % (0-4.5) 09/09/18 17:07 Basophils % 0.3 % (0-2.0) 09/09/18 17:07 Nucleated RBC % 0 % (0-0) 09/09/18 17:07 No leukocytosis. No anemia. 09/09/18 17:38 CMP hemolyzed per lab. Will redraw. 09/09/18 17:45 Pt now reported room spinning dizziness associated with vomiting prior to arrival, that has completely resolved. Pending CT head. 09/09/18 17:49 Influena A/B negative. Acetone negative. CMP Sodium 141 mmol/L (136-145) 09/09/18 17:53 Potassium 4.8 mmol/L (3.5-5.1) 09/09/18 17:53 Chloride 108 mmol/L (98-107) H 09/09/18 17:53 Carbon Dioxide 25 mmol/L (21-32) 09/09/18 17:53 Anion Gap 8 MMOL/L (8-16) 09/09/18 17:53 BUN 23 mg/dL (7-18) H 09/09/18 17:53 Creatinine 0.7 mg/dL (0.55-1.3) 09/09/18 17:53 Creat Clearance w eGFR > 60 (>60) 09/09/18 17:53 Random Glucose 124 mg/dL (74-106) H 09/09/18 17:53 Lactic Acid 1.6 mmol/L (0.4-2.0) 09/09/18 17:07 Calcium 8.3 mg/dL (8.5-10.1) L 09/09/18 17:53 Magnesium Cancelled 09/09/18 17:07 Total Bilirubin 0.2 mg/dL (0.2-1) 09/09/18 17:53 AST 25 U/L (15-37) 09/09/18 17:53 ALT 34 U/L (13-61) 09/09/18 17:53 Alkaline Phosphatase 51 U/L (45-117) 09/09/18 17:53 Creatine Kinase Cancelled 09/09/18 17:07 Troponin I Cancelled 09/09/18 17:07 Total Protein 7.0 g/dl (6.4-8.2) 09/09/18 17:53 Albumin 3.7 g/dl (3.4-5.0) 09/09/18 17:53 Lipase Cancelled 09/09/18 17:07 Lab called to run cardiac enzymes. No electrolyte abnormality. BUN/Cr >20 - Pt dehydrated - Pt given 1000 cc normal saline bolus Mild hyperglycemia - DKA unlikely Cardiac enzymes normal Mg hemolyzed, K+ normal, no need to resend to lab. 09/09/18 19:28 Pt reassessed, reported resolution of nausea and improvement of abdominal pain. Pt has not vomited since receiving medication. Pt now complains of belching. Abdomen soft, mild tenderness to epigastrium, mildly distended. Pending CT imaging. 09/09/18 21:21 Pt reassessed, stated pain improved. reported no nausea. Abdomen soft, mild epigastric tenderness. 09/09/18 22:14 CT head report: no intracranial hemorrhages, extra-axial fluid collections or intra-axial mass lesion. no evidence of acute or chronic ischemic change. Pt tolerated PO water challenge. 09/09/18 23:31 CT abdomen/pelvis report: no appendicitis. Diverticulosis without diverticulitis. hepatomegaly. small hiatal hernia. renal cysts. no hydronephrosis. possible 4 mm calculus in distal right ureter, vs vascular calcification abutting the ureter. - Pt does not have right flank pain Pt appears well, ambulating unassisted, requesting to eat and go home. Pt to be discharged with meclizine and zofran prescription. Pt informed of chance of TIA, and informed of strict return precautions. Pt given copies of lab work and imaging reports. *DC/Admit/Observation/Transfer Diagnosis at time of Disposition: Dizziness, Vomiting, Diarrhea - Discharge Dispostion Disposition: HOME Condition at time of disposition: Improved Decision to Admit order: No - Prescriptions Prescriptions: Meclizine HCl 25 mg PO QID PRN #12 tablet PRN Reason: Vertigo Ondansetron [Zofran Odt -] 4 mg SL TID PRN #6 od.tablet PRN Reason: Nausea And/Or Vomiting - Referrals Referrals: Maira Monk MD [Primary Care Provider] - - Patient Instructions Additional Instructions: You were seen today for nausea/vomiting/dizziness/diarrhea. Your lab work was normal. Your CatScan showed a nodule on your adrenal gland, cysts on your kidney , and diverticulosis without diverticulitis. I have provided you with copies of your imaging reports, bring them to your primary care doctor. Follow up with your primary care doctor in 1-2 days, call their office tuesday morning and make an appointment for as soon as available, tell them you were seen in the Emergency Department. I have sent a prescription for meclizine to your pharmacy , take as needed for dizziness, take as advised on label. I have sent a prescription for zofran, take as needed for nausea, take as advised on label. Take Tylenol over the counter for your pain, do not take ibuprofen as it will irritate your stomach, take as advised on label. Return to the Emergency Department for dizziness not stopped by Meclizine, weakness of your arms or legs , facial drooping, altered mental status, change in gait/walking abnormally, feeling off balance, changes in vision (blurry/double), or any other new, worsening or concerning symptoms. - Post Discharge Activity
[2018-09-09 16:34] VITALS: BMI 23.3
[2018-09-09] MEDS ORDERED: ONDANSETRON 4 MG/2 ML VIAL IVPUSH ONE (16:45)
[2018-09-09] MEDS ORDERED: SODIUM CHLORIDE 1,000 ML IV STA (16:45)
[2018-09-09] MEDS ORDERED: MAG HYDROX/AL HYDROX/SIMETH 30 ML UNIT-DOSE CUP PO ONE (16:45)
[2018-09-09] MEDS ORDERED: FAMOTIDINE 20 MG/50 ML IVPB 20 MG/50 ML MG IVPB ONE ×2 (16:45→16:51)
--- NOTE | 2018-09-09 16:49 | PDOC ---
Attending Attestation - HPI HPI: 09/09/18 17:23 The patient is a 78 year old female with past medical history of hypertension, hyperlipidemia, rdq-fqddxrg-cqnkeeanc diabetes, bilateral hearing loss, gastroesophageal reflux disease presented to emergency department for diarrhea, vomiting and dizziness. Patient states she had watery diarrhea yesterday night, which was non-bloody. Patients daughter gave her anti-diarrhea medication, unknown name and the diarrhea resolved shortly after. Patient also had 8 episodes of non bloody, non bilious vomit today, but denies having any episodes here in the ER. Patient admits to associated epigastric pain that resolved on its own. Patient also noticed dizziness, which she describes as the room spinning and is alleviated when she closed her eyes. Patient denies fever, chills, dysuria, urinary symptoms, chest pain, shortness of breath. Allergies: NKDA Surgical history: denied <Jessie Ansari - Last Filed: 09/09/18 17:23> - Physicial Exam PE: 09/09/18 19:07 Agree with resident exam. Patient is awake alert and oriented and in no acute distress. Neurologically intact. Abdomen is soft, non tender and non distended. - Medical Decision Making 09/09/18 19:42 Pt presents to the ED complaining of a one day history of vertigo accompanied by nausea and vomiting. Symptoms resolved spontaneously, and patient is now asymptomatic. Also complaining of mild epigastric pain which has now resolved, as well. Given her age and her history of epigastric pain, will check CT abdomen pelvis to rule out intra abdominal pathology. Given her complaint of vertigo, will check CT head to rule out intracranial pathology. Suspicion for vertebral basliar TIA is low given that her symptoms have completely resolved and she is neurologically intact. Will instruct patient to follow with her PMD without fail for further evaluation. <Archana Martinez - Last Filed: 09/09/18 19:49>
[2018-09-09] MEDS ORDERED: ONDANSETRON 4 MG/2 ML VIAL ONE (16:51)
[2018-09-09] MEDS ORDERED: MAG HYDROX/AL HYDROX/SIMETH 30 ML UNIT-DOSE CUP ONE (16:51)
[2018-09-09 17:26] LABS: BASO % 0.3 % (0-2.0); EOS % 2.1 % (0-4.5); HEMATOCRIT 35.4 % (32.4-45.2); HEMOGLOBIN 12.5 GM/dL (10.7-15.3); LYMPH % 14.7 % (8-40); MCH 31.1 pg (25.7-33.7); MCHC 35.1 g/dl (32.0-36.0); MEAN CELL VOLUME 88.5 fl (80-96); MEAN PLT VOLUME 8.4 fl (7.5-11.1); MONO % 5.7 % (3.8-10.2); NEUT % 77.2 % (42.8-82.8); PLATELET COUNT 206 K/MM3 (134-434); RDW 13.5 % (11.6-15.6); WHITE BLOOD COUNT 5.5 K/mm3 (4.0-10.0)
[2018-09-09 17:45] LABS: INR 1.08 (0.83-1.09); PROTHROMBIN TIME (PATIENT) 12.7 SEC (9.7-13.0)
[2018-09-09 17:48] LABS: ACTIVATED PTT 25.6 SECONDS (25.2-36.5)
[2018-09-09 17:59] LABS: URINE APPEARANCE CLEAR; URINE BILIRUBIN NEGATIVE (<2.0 mg/dL); URINE COLOR STRAW; URINE GLUCOSE (UA) NEGATIVE (NEGATIVE); URINE KETONE NEGATIVE (NEGATIVE); URINE LEUK ESTERASE NEGATIVE (NEGATIVE); URINE NITRITE NEGATIVE (NEGATIVE); URINE PROTEIN NEGATIVE (NEGATIVE); URINE UROBILINOGEN NEGATIVE mg/dL (0.2-1.0)
[2018-09-09 18:40] LABS: ALBUMIN 3.7 g/dl (3.4-5.0); ALK PHOS 51 U/L (45-117); ANION GAP 8 MMOL/L (8-16); BILIRUBIN,TOTAL 0.2 mg/dL (0.2-1); BLOOD UREA NITROGEN 23 mg/dL (7-18); CALCIUM 8.3 mg/dL (8.5-10.1); CHLORIDE 108 mmol/L (98-107); CO2 25 mmol/L (21-32); CREATININE 0.7 mg/dL (0.55-1.3); GLUCOSE,RANDOM 124 mg/dL (74-106); POTASSIUM 4.8 mmol/L (3.5-5.1); SGOT/AST 25 U/L (15-37); SGPT/ALT 34 U/L (13-61); SODIUM 141 mmol/L (136-145)
[2018-09-09 19:19] LABS: LIPASE 131 U/L (73-393)
[2018-09-09 23:54] VITALS: BP 152/80; PULSE 72; TEMP 98.4
--- NOTE | 2018-09-11 11:24 | EKG ---
Test Reason : Blood Pressure : / mmHG Vent. Rate : 066 BPM Atrial Rate : 066 BPM P-R Int : 130 ms QRS Dur : 086 ms QT Int : 422 ms P-R-T Axes : 024 013 037 degrees QTc Int : 442 ms NORMAL SINUS RHYTHM NORMAL ECG WHEN COMPARED WITH ECG OF 05-MAY-2017 23:57, NO SIGNIFICANT CHANGE WAS FOUND Confirmed by LYDIA DIAZ MD ([id number]) on 09/11/2018 11:23:49 AM Referred By: Confirmed By:LYDIA DIAZ MD
== END 2018-09-09 23:54 | disposition home or self-care (01) ==
LOC: JER 16:26
PROC: 3E033GC Introduction of Other Therapeutic Substance into Peripheral Vein, Percutaneous Approach (ICD-10-PCS; principal; 2018-09-09)
PROC: 3E033GC Introduction of Other Therapeutic Substance into Peripheral Vein, Percutaneous Approach (ICD-10-PCS; 2018-09-09)
DX: K57.90 Diverticulosis of intestine, part unspecified, without perforation or abscess without bleeding (principal)
CPT/HCPCS: 36415; 70450-TC; 74177-TC; 80053; 81003; 82009; 82550; 83605; 83690; 84484; 85025; 85610; 85730; 87086; 87804; 93005; 93010; 96365; 96375; 99282-25; J7030